=== PATIENT | female | born 1990 | race Two or more races ===

== ENCOUNTER 2025-06-21 10:27 | Emergency (ER) | payer BC, SELFPAY ==
[2025-06-21 10:32] VITALS: BP 128/87; PULSE 82; RESP 18; TEMP 36.9; O2SAT 99
--- NOTE | 2025-06-21 10:32 | W.ED.GENAD ---
Discharge Plan Disposition Patient Disposition: Home Discharge Details Clinical Impression: Acute middle ear effusion, Stiffness of neck, Headache Primary Care Provider: Unknown,Unknown ED Provider: Tee Ryan Home Meds and New Rx's Prescriptions: New diazepam 5 mg tablet 5 mg PO QHS PRNQty: 5 0RF diazepam 5 mg tablet 5 mg PO QD-TID PRNQty: 5 0RF diazepam 5 mg tablet 5 mg PO QHS PRNQty: 5 0RF diazepam 5 mg tablet 5 mg PO QD-TID PRNQty: 5 0RF diazepam 5 mg tablet 5 mg PO QD-TID PRNQty: 5 0RF lidocaine [Lidoderm] 5 % adhesive patch,medicated 1 patch topical DAILY Qty: 15 0RF Rx Instructions: leave on most painful area for up to 12 hrs Continued venlafaxine 75 mg tablet 75 mg PO DAILY Discharge Instructions Additional Instructions: You are seen in the emergency department for your neck stiffness. Please try to taking this medication to treat spasm. As we discussed if you develop fevers nausea vomiting any worsening headache or any worsening neck stiffness please return to the emergency department for reassessment. You are receiving medication you should take as directed which may improve your stiff neck. Please not drive or drink alcohol to protect this medication. For your pain please take medications as follows: 1. Take acetaminophen (Tylenol), 1,000 mg (two 500 mg tabs) every 6 hours [2. Take ibuprofen (Advil), 400 mg every 6 hours.] Stand Alone Forms: Work Release Discharge Data Discharge Date/Time-TO BE ENTERED AT DEPARTURE: 06/21/25 11:54 HPI General Date/Time Provider Initiated Documentation: 06/21/25 10:32. HPI Narrative: MDM This is an overall well-appearing normothermic and not tachycardic 34-year-old female with neck stiffness right middle ear effusion and URI symptoms for which patient will receive COVID swab along with symptomatic treatment with acetaminophen, ibuprofen, diazepam, and Lidoderm patch. Patient her and I had a lengthy discussion about advantages and disadvantages of performing a lumbar puncture. We discussed that patient was quite well-appearing and despite her decreased range of motion in her neck she has no fevers nor petechial rash nor history of immunosuppression to suggest increased risk for bacterial meningitis. She had not recently been in the [place] and had no tick bites to suggest Lyme meningitis. I offered the patient a lumbar puncture. I advised her that if she was a type of person who wanted to be 100% sure that she did not have meningitis she would benefit from a lumbar puncture to assist in evaluating for any bacterial causes of meningitis. We also discussed that there were the possibilities of failed procedure, infection, or worsening headache with lumbar puncture. We also discussed that sometimes her meningitis were from viruses that did not require antibiotics. She declined lumbar puncture. She was not altered to suggest HSV encephalitis. Given URI symptoms and right middle ear effusion I felt that viral etiology was more likely. It could be possible given that the patient's neck stiffness developed before her URI symptoms that there might be a component of torticollis. She had no posterior oropharynx erythema to suggest strep pharyngitis. Concerning her headache it was not sudden in onset to suggest subarachnoid hemorrhage so I did not feel patient required a CT scan. She had no recent chiropractic manipulation to suggest increased risk for cervical arterial dissection. No recent generator exposure to suggest carbon monoxide toxicity. She is not hypertensive to suggest reversible cerebral vasoconstriction syndrome. She has not been on hormones to suggest increased risk for cerebral venous sinus vein thrombosis. Her uvula is midline making my suspicion low for peritonsillar abscess. No pain out of proportion to suggest necrotizing soft tissue infection. Based on her age and her lack of significant throat pain I was not suspicious for retropharyngeal abscess. Clear lungs without hypoxia nor SOB so my suspicion is low for pneumonia was low so I did not feel patient required a chest x-ray. No abdominal pain to suggest intra-abdominal infection such as appendicitis. Patient not been vomiting to suggest increased risk for subdural empyema. No dysuria nor frequency to suggest UTI. Will swab for viral infections and discharge with empiric trial of expectant outpatient management. Patient and I discussed at length that if her symptoms worsen do not improve or if she were develop any fevers or change her mind about wanting a lumbar puncture she should return to the emergency department. 3:40 PM Late charting due to patient care. Respiratory viral swab negative for RSV influenza and COVID. HPI This is a patient with a history of anxiety presenting with neck stiffness, headache, congestion, and muffled hearing. A few days ago, the patient began experiencing neck stiffness that progressively worsened throughout the day. Initially, the patient attributed this to an uncomfortable sleeping position. However, the severity of the stiffness has increased, prompting the patient to seek medical attention. The patient reports no recent dental procedures, chiropractic manipulations, or exposure to generators. The patient also reports no abdominal pain, vomiting, chest pain, or painful urination. The patient occasionally feels nauseous, which is attributed to anxiety and reduced appetite. The patient has been experiencing intermittent headaches, which are described as a sensation of the brain bouncing around during movement. These headaches are accompanied by muffled hearing in the right ear and radiating pain from the ear down to the neck. The onset of the headaches was this morning, although the patient had previously experienced difficulty eating and moving due to them. The patient also has anxiety, which can manifest as headaches when feeling overwhelmed. The current headache is located at the back of the head and spreads throughout the head during movement, causing a vibrating sensation. The headache started gradually, subsided for a while, and then returned more intensely. It is currently intermittent. The patient has been managing symptoms with Tylenol for the past couple of days. The patient woke up this morning with significant congestion, initially attributed to allergies. The congestion has been persistent throughout the day, but the patient is unsure of any specific triggers. The patient reports no runny nose prior to the onset of symptoms but did experience nasal congestion in the mornings, which was particularly severe this morning. The patient has been avoiding coughing due to associated pain and is unsure if vaping could be contributing to symptoms. The patient reports no breathing difficulties, fevers, or new rashes. The patient occasionally experiences difficulty swallowing on the right side. The patient reports no recent illnesses in the household. The patient works for the [employer], primarily from home, with occasional in-person meetings. The patient visited a lab for blood work on Friday, which is the only time they have left the house recently. The patient takes venlafaxine daily for anxiety. Exam General: Well-appearing in no acute distress speaking in complete sentences. Head: Normocephalic, atraumatic. Eye: Extraocular eye movements intact. No conjunctival injection. No scleral icterus. Ear, nose, mouth, throat: Right middle ear effusion. No erythematous TM. Normal voice, handling secretions normally. No mastoid tenderness. Neck: Trachea midline. Neck stiffness. Patient has difficulty touching her chin to her chest. Patient has difficulty rotating her neck. Her neck is held in a neutral position. No rash to neck. Cardiovascular: Well-perfused distal extremities. Regular rate and rhythm. Respiratory: Nonlabored respiration. Clear lungs bilaterally. Gastrointestinal: Nondistended abdomen. Musculoskeletal: No edema. Moving all 4 extremities spontaneously. Skin: Normal for age and race, grossly normal temperature and turgor. No acute rash. Neurologic: Alert and appropriate, no apparent acute deficits. GCS 15 Psychiatric: Mood and manner are appropriate. Grooming and personal hygiene are appropriate. Related Data Home Medications ?Medication ?Instructions ?Recorded ?Confirmed diazepam 5 mg tablet 5 mg PO QD-TID PRN #5 tabs 06/21/25 diazepam 5 mg tablet 5 mg PO QD-TID PRN #5 tabs 06/21/25 diazepam 5 mg tablet 5 mg PO QD-TID PRN #5 tabs 06/21/25 diazepam 5 mg tablet 5 mg PO QHS PRN #5 tabs 06/21/25 diazepam 5 mg tablet 5 mg PO QHS PRN #5 tabs 06/21/25 lidocaine 5 % topical patch 1 patch topical DAILY #15 ea 06/21/25 (Lidoderm) venlafaxine 75 mg tablet 75 mg PO DAILY 06/21/25 06/21/25 Previous Rx's ?Medication ?Instructions ?Recorded diazepam 5 mg tablet 5 mg PO QD-TID PRN #5 tabs 06/21/25 diazepam 5 mg tablet 5 mg PO QD-TID PRN #5 tabs 06/21/25 diazepam 5 mg tablet 5 mg PO QD-TID PRN #5 tabs 06/21/25 diazepam 5 mg tablet 5 mg PO QHS PRN #5 tabs 06/21/25 diazepam 5 mg tablet 5 mg PO QHS PRN #5 tabs 06/21/25 lidocaine 5 % topical patch 1 patch topical DAILY #15 ea 06/21/25 (Lidoderm) Allergies Allergy/AdvReac Type Severity Reaction Status Date / Time Sulfa (Sulfonamide Allergy Intermediate Skin Rash Verified 06/21/25 10:36 Antibiotics) PFSH All Active Problems (Updated 06/21/25 @ 11:12 by Tee Ryan MD) Headache (Acute) Stiffness of neck (Acute) Acute middle ear effusion (Acute) Social History Smoking risk assessment performed?: No
[2025-06-21] MEDS: Acetaminophen 500 MG TAB 1000 MG PO (11:19)
[2025-06-21] MEDS: Lidocaine 5% Patch 1 PATCH TP (11:20)
[2025-06-21] MEDS: Ibuprofen 600 MG TAB PO (11:20)
[2025-06-21] MEDS: diazePAM 5 MG TAB PO (11:20)
[2025-06-21 11:24] VITALS: BP 128/87; PULSE 82; RESP 18; TEMP 36.9; O2SAT 99
[2025-06-21 12:01] LABS: COVID-19 PCR Negative (Negative); RSV PCR Negative (Negative)
--- NOTE | 2025-06-21 12:56 | NUR.NOTE ---
Faxed work release note to Pt at [email or web address].
--- NOTE | 2025-06-22 07:48 | W.ED.FU ---
Date of service: 06/23/25 Time of Service: 14:55 Follow Up Plan: 06/23 I called the patient at home to inquire as to how she was feeling. She reported that she had slept the other night but was not feeling markedly improved. She had not developed any significant fevers. She noted that her was able to find a small bump on the back of her neck. She could not exactly locate this at the moment. She reported that she had arranged for PCP follow-up in [place] tomorrow morning. We discussed that if she did develop any fevers vomiting that did not stop or if she had any concerns that we would be happy to reassess her at the emergency department. 06/28 I called patient. She had seen her PCP. She is feeling improved. Advised her to return if she had worsening pain. She is awaiting a callback from her PCP concerning x-rays that have been taken.
== END 2025-06-21 11:54 | disposition home or self-care (01) ==
LOC: ER 11:42
PROVIDERS: Emergency Provider Emergency Medicine
DX: H65.191 Other acute nonsuppurative otitis media, right ear (principal); M43.6 Torticollis; R51.9 Headache, unspecified
CPT/HCPCS: 99283 ×2; 87637